=== PATIENT | female | born 1985 | race African-American/Black ===

== ENCOUNTER 2025-01-01 05:38 | Inpatient (IN) | payer MEDICAID, OTHER ==
[~2025-01-01] VITALS: Ht 167.6 cm; Wt 87.5 kg
[2025-01-01 05:40] VITALS: O2SAT 99
[2025-01-01 06:07] LABS: HEMATOCRIT. 30.6 % (36.0-48.0); HEMOGLOBIN. 8.2 g/dL (12.0-16.0); MEAN PLATELET VOLUME 8.6 fl (7.4-10.4); PLATELET 572 x1000/uL (130-400); RED BLOOD CELL COUNT 4.94 mill/uL (4.2-5.4); RED CELL DISTRIBUTION WIDTH 23.5 % (11.6-14.6)
[2025-01-01] MEDS: ONDANSETRON HCL 4MG/2ML INJ IV ONE ×2 (06:20→09:09)
[2025-01-01] MEDS: SODIUM CHLORIDE 0.9% 1,000 ML IV ONE ×3 (06:20→10:54)
[2025-01-01 06:21] LABS: HCG SCREEN NEGATIVE
[2025-01-01] MEDS: ACETAMINOPHEN 325MG TABLET PO ONE (06:21)
[2025-01-01] MEDS: ONDANSETRON 4MG ODT PO ONE (06:21)
[2025-01-01 06:22] LABS: CREATININE 1.2 mg/dL (0.6-1.0)
[2025-01-01 06:23] LABS: UREA NITROGEN BLOOD 15 mg/dL (9-23)
[2025-01-01 06:49] LABS: BAND% 2.0 % (1.0-6.0); LYMPHOCYTES % MANUAL 11.0 % (20.0-60.0); METAMYELOCYTES % 1.0 % (0-0); MONOCYTES % MANUAL 12.0 % (2.0-8.0); NEUTROPHILS % MANUAL 74.0 % (45.0-75.0); PLATELET ESTIMATE INCREASED
[2025-01-01] MEDS: KETOROLAC 15MG/ML VIAL IV ONE (07:09)
[2025-01-01 07:57] LABS: *AMPHETAMINES SCREEN URINE NEGATIVE (NEGATIVE); *BARBITURATES SCREEN URINE NEGATIVE (NEGATIVE); *BENZODIAZEPINES SCREEN URINE NEGATIVE (NEGATIVE); *COCAINE SCREEN URINE NEGATIVE (NEGATIVE); CANNABINOID URINE SCREEN PRESUMPTIVE POSITIVE (NEGATIVE); ECSTASY MDMA SCREEN URINE NEGATIVE (NEGATIVE); METHADONE URINE SCREEN NEGATIVE (NEGATIVE); OPIATES URINE SCREEN NEGATIVE (NEGATIVE); PHENCYCLIDINE URINE SCREEN NEGATIVE (NEGATIVE)
[2025-01-01 08:25] LABS: BG BASE EXCESS -22.1 mmol/L (-2.0-3.0); BG CARBOXYHEMOGLOBIN 0.2 % (0.5-1.5); BG DEOXYHEMOGLOBIN 3.0 % (0.0-5.0); BG FRACTION INSPIRED OXYGEN 21; BG HCO3 ACT 6.0 mmol/L (21.0-28.0); BG METHEMOGLOBIN 0.2 % (0.5-1.5); BG OXYGEN SATURATION 97.0 % (94.0-98.0); BG OXYHEMOGLOBIN 96.6 % (94.0-98.0); BG PCO2 20.5 mmHg (32.0-45.0); BG PH 7.083 (7.350-7.450); BG PO2 115.5 mmHg (83.0-108.0); BG SAMPLE SITE RIGHT RADIAL; BG TOTAL HEMOGLOBIN 8.5 g/dL (12.0-16.0); BG VENT MODE ROOM AIR
[2025-01-01] MEDS: MORPHINE SULFATE 4 MG/ML INJ (FOR IV/IM USE) IV ONE (09:08)
[2025-01-01] MEDS: PIPERACILLIN/TAZO 3.375G/50ML 50 ML IV ONE (09:08)
[2025-01-01 09:09] LABS: TROPONIN I HIGH SENSITIVITY < 4 ng/L (3.0-34)
[2025-01-01 09:34] LABS: CREATININE 1.0 mg/dL (0.6-1.0); UREA NITROGEN BLOOD 18 mg/dL (9-23)
[2025-01-01 09:41] LABS: CLARITY URINE CLOUDY (CLEAR); COLOR URINE YELLOW (YELLOW); PH URINE 5.0 (4.5-8.0); SPECIFIC GRAVITY URINE 1.014 (1.005-1.030)
[2025-01-01 09:42] LABS: GLUCOSE URINE NEGATIVE (NEGATIVE); KETONES URINE TRACE (NEGATIVE); LEUKOCYTE ESTERASE URINE NEGATIVE (NEGATIVE); NITRITE URINE NEGATIVE (NEGATIVE); OCCULT BLOOD URINE 2+ (NEGATIVE); PROTEIN URINE 3+ (NEGATIVE); UROBILINOGEN URINE 0.2 E.U./dL (0.2-1.0)
[2025-01-01] MEDS ORDERED: SODIUM ZIRCONIUM CYCLOSILICATE 10GM/PACKET PO NR (10:00)
[2025-01-01 10:04] LABS: COARSE GRANULAR CASTS URINE 0-5 /lpf; FINE GRANULAR CASTS URINE 0-5 /lpf; HYALINE CASTS URINE 0-5 /lpf
[2025-01-01 10:05] LABS: RBC URINE 0-2 /hpf (0-2); WBC URINE 0-2 /hpf (0-2)
[2025-01-01 10:06] LABS: SQUAMOUS EPITHELIAL CELL URINE 1+ /lpf (RARE/1+)
[2025-01-01 10:09] LABS: BACTERIA URINE 3+
[2025-01-01] MEDS: SODIUM ZIRCONIUM CYCLOSILICATE 10GM/PACKET PO NR ×2 (10:30→10:54)
[2025-01-01] MEDS: VANCOMYCIN 1G PREMIX 200 ML IV ONE (10:53)
[2025-01-01 11:12] LABS: BASOPHILS % 0.4 % (0.0-2.0); EOSINOPHILS % 0.0 % (0.0-5.0); HEMATOCRIT. 23.8 % (36.0-48.0); LYMPHOCYTES % 11.4 % (20.0-50.0); MEAN PLATELET VOLUME 8.5 fl (7.4-10.4); MONOCYTES % 11.8 % (2.0-8.0); NEUTROPHILS % 76.4 % (40.0-76.0); PLATELET 382 x1000/uL (130-400); RED BLOOD CELL COUNT 4.01 mill/uL (4.2-5.4); RED CELL DISTRIBUTION WIDTH 22.6 % (11.6-14.6)
[2025-01-01 11:27] LABS: HEMOGLOBIN. 6.6 g/dL (12.0-16.0)
[2025-01-01 11:36] LABS: ASPARTATE AMINOTRANSFERASE 36 IU/L (<34); BILIRUBIN DIRECT 0.2 mg/dL (<=3.0); BILIRUBIN TOTAL 0.6 mg/dL (0.1-1.0); PROTEIN TOTAL 7.6 g/dL (6.0-8.3)
[2025-01-01] MEDS: INSULIN REGULAR (HUMULIN R) 1000UNITS/10ML VIAL IV ONE (12:24)
[2025-01-01] MEDS: DEXTROSE 50% WATER 50ML SYRINGE IV ONE (12:24)
[2025-01-01] MEDS: CALCIUM GLUCONATE 100MG/ML 10ML VIAL IV ONE (12:25)
[2025-01-01] MEDS: SODIUM BICARBONATE 8.4% 50MEQ/50ML VIAL IV ONE (12:25)
[2025-01-01] MEDS: CALCIUM GLUCONATE 1GM PREMIX 50 ML IV NR (12:42)
[2025-01-01] MEDS: SODIUM CHLORIDE 0.9% 1,000 ML IV SCH (12:42)
[2025-01-01] MEDS: PANTOPRAZOLE SODIUM 40 MG/VIAL IV SCH (12:42)
[2025-01-01] MEDS: ENOXAPARIN 40MG/0.4ML SYR SUBCUT SCH (12:42)
[2025-01-01] MEDS: CEFTRIAXONE 1GM/50ML 50 ML IV SCH (13:07)
[2025-01-01 13:34] LABS: FOLIC ACID (FOLATE) SERUM > 20.00 ng/mL (>5.38); VITAMIN B12 SERUM 441 pg/mL (211-911)
[2025-01-01 14:00] VITALS: BP 112/72; PULSE 98; RESP 22; TEMP 37.0296
[2025-01-01 16:00] VITALS: BP 113/71; PULSE 96; RESP 25; TEMP 37; O2SAT 100
[2025-01-01] MEDS ORDERED: ACETAMINOPHEN 325MG TABLET PO PRN (17:30)
[2025-01-01] MEDS ORDERED: IPRATROPIUM/ALBUTEROL 0.5-3(2.5)MG/3ML NEB HHN PRN (17:30)
[2025-01-01] MEDS ORDERED: ONDANSETRON HCL 4MG/2ML INJ IV PRN (17:30)
[2025-01-01] MEDS ORDERED: CLONIDINE 0.1MG TABLET PO PRN (17:30)
[2025-01-01] MEDS ORDERED: ACETAMINOPHEN 650MG/20.3ML UDC GT PRN ×2 (17:30)
[2025-01-01 18:00] VITALS: BP 122/76; PULSE 100; RESP 23; O2SAT 100
[2025-01-01 19:26] LABS: PLATELET 366 x1000/uL (130-400); RED BLOOD CELL COUNT 4.03 mill/uL (4.2-5.4); RED CELL DISTRIBUTION WIDTH 23.0 % (11.6-14.6)
[2025-01-01 19:36] LABS: INR 1.1
[2025-01-01 19:37] LABS: CREATININE 0.9 mg/dL (0.6-1.0); UREA NITROGEN BLOOD 12 mg/dL (9-23)
[2025-01-01 19:39] LABS: PHOSPHORUS 2.9 mg/dL (2.5-4.9)
[2025-01-01 20:00] VITALS: BP 120/83; PULSE 98; RESP 24; TEMP 37.1; O2SAT 100
[2025-01-01 20:29] LABS: INFLUENZA TYPE A Presumptive Negative (Pres. Neg.)
[2025-01-01 20:30] LABS: INFLUENZA TYPE B Presumptive Negative (Pres. Neg.); RESPIRATORY SYNCYTIAL VIRUS Not Detected (Not Detectd)
[2025-01-01] MEDS: VANCOMYCIN 1GM/200ML PMX (BAXTER) IV SCH (21:00)
[2025-01-01 22:00] VITALS: PULSE 105; RESP 18; O2SAT 100
[2025-01-01] MEDS: PIPERACILLIN/TAZO 3.375G/50ML 50 ML IV SCH (22:10)
[2025-01-02] VITALS (12 sets, daily range): BP systolic 100–124; BP diastolic 61–87; PULSE 82–112; RESP 16–26; TEMP 37.1–37.7; O2SAT 97–100
[2025-01-02] MEDS: LACTATED RINGERS 1,000 ML IV SCH (13:45)
[2025-01-02] MEDS: CITRIC ACID/SODIUM CITRATE SOLN 30ML UDC PO SCH (17:53)
[2025-01-03] VITALS (11 sets, daily range): BP systolic 96–134; BP diastolic 63–93; PULSE 67–95; RESP 14–28; TEMP 36.6–37.6; O2SAT 99–100
[2025-01-03 08:07] LABS: MEAN PLATELET VOLUME 8.9 fl (7.4-10.4); PLATELET 281 x1000/uL (130-400); RED BLOOD CELL COUNT 3.69 mill/uL (4.2-5.4); RED CELL DISTRIBUTION WIDTH 22.3 % (11.6-14.6)
[2025-01-03 08:08] LABS: CREATININE 0.8 mg/dL (0.6-1.0); UREA NITROGEN BLOOD 6 mg/dL (9-23)
[2025-01-03 08:28] LABS: HEMATOCRIT. 20.5 % (36.0-48.0); HEMOGLOBIN. 6.2 g/dL (12.0-16.0)
[2025-01-03] MEDS: POTASSIUM CHLORIDE 20MEQ TABLET SR PO SCH (15:01)
[2025-01-03] MEDS: IRON SUCROSE COMPLEX 100 MG/5 ML ML IV SCH (16:22)
[2025-01-03 17:18] LABS: EOSINOPHILS % MANUAL 2.0 % (0.0-5.0); LYMPHOCYTES % MANUAL 28.0 % (20.0-60.0); MONOCYTES % MANUAL 9.0 % (2.0-8.0); NEUTROPHILS % MANUAL 61.0 % (45.0-75.0); PLATELET ESTIMATE NORMAL
[2025-01-04] VITALS: BP 106/59; PULSE 86; RESP 23; TEMP 37.3; O2SAT 99
[2025-01-04 04:00] VITALS: BP 111/76; PULSE 69; RESP 21; TEMP 37.2; O2SAT 100
[2025-01-04 06:57] LABS: MEAN PLATELET VOLUME 8.8 fl (7.4-10.4); PLATELET 251 x1000/uL (130-400); RED BLOOD CELL COUNT 3.69 mill/uL (4.2-5.4); RED CELL DISTRIBUTION WIDTH 22.3 % (11.6-14.6)
[2025-01-04 07:16] LABS: CREATININE 0.7 mg/dL (0.6-1.0); T4 FREE 1.12 ng/dL (0.89-1.76)
[2025-01-04 07:17] LABS: UREA NITROGEN BLOOD < 5 mg/dL (9-23)
[2025-01-04 07:34] LABS: HEMOGLOBIN. 6.3 g/dL (12.0-16.0)
[2025-01-04 07:35] LABS: HEMATOCRIT. 20.8 % (36.0-48.0)
[2025-01-04 08:00] VITALS: BP 106/71; PULSE 83; RESP 24; TEMP 37.2; O2SAT 100
[2025-01-04] MEDS: CYANOCOBALAMIN 1000MCG/ML VIAL IM SCH (09:29)
[2025-01-04] MEDS: POTASSIUM CHLORIDE 20MEQ TABLET SR PO NR (11:14)
[2025-01-04] MEDS: THROAT LOZENGES-BENZOCAINE/MENTH/CETYLPYRD CL LOZENGES MM PRN (11:20)
[2025-01-04 12:00] VITALS: BP 126/73; PULSE 74; RESP 15; TEMP 37.1; O2SAT 100
[2025-01-04 14:21] LABS: PHOSPHORUS 2.8 mg/dL (2.5-4.9)
[2025-01-04 15:37] VITALS: BP 124/71; PULSE 85; RESP 20; TEMP 37.2; O2SAT 100
[2025-01-04 20:00] VITALS: BP 135/71; PULSE 85; RESP 18; TEMP 36.6; O2SAT 100
[2025-01-04 20:00] LABS: EOSINOPHILS % MANUAL 3.0 % (0.0-5.0); LYMPHOCYTES % MANUAL 25.0 % (20.0-60.0); MONOCYTES % MANUAL 18.0 % (2.0-8.0); NEUTROPHILS % MANUAL 54.0 % (45.0-75.0)
[2025-01-04 20:01] LABS: PLATELET ESTIMATE NORMAL
[2025-01-05] VITALS: BP 126/73; PULSE 82; RESP 17; TEMP 36.6; O2SAT 100
[2025-01-05 04:00] VITALS: BP 137/76; PULSE 82; RESP 18; TEMP 36.6; O2SAT 100
[2025-01-05 05:43] LABS: INR 1.0
[2025-01-05 05:46] LABS: UREA NITROGEN BLOOD < 5 mg/dL (9-23)
[2025-01-05 05:47] LABS: CREATININE 0.6 mg/dL (0.6-1.0)
[2025-01-05 05:49] LABS: ASPARTATE AMINOTRANSFERASE 26 IU/L (<34); BILIRUBIN DIRECT 0.1 mg/dL (<=3.0); BILIRUBIN TOTAL 0.4 mg/dL (0.1-1.0); PHOSPHORUS 3.0 mg/dL (2.5-4.9); PROTEIN TOTAL 6.4 g/dL (6.0-8.3)
[2025-01-05 05:53] LABS: BASOPHILS % 1.8 % (0.0-2.0); EOSINOPHILS % 4.0 % (0.0-5.0); HEMATOCRIT. 21.1 % (36.0-48.0); LYMPHOCYTES % 35.9 % (20.0-50.0); MEAN PLATELET VOLUME 9.0 fl (7.4-10.4); MONOCYTES % 13.6 % (2.0-8.0); NEUTROPHILS % 44.7 % (40.0-76.0); PLATELET 240 x1000/uL (130-400); RED BLOOD CELL COUNT 3.69 mill/uL (4.2-5.4); RED CELL DISTRIBUTION WIDTH 22.6 % (11.6-14.6)
[2025-01-05 06:53] LABS: HEMOGLOBIN. 6.3 g/dL (12.0-16.0)
[2025-01-05 08:00] VITALS: BP 144/73; PULSE 84; RESP 26; TEMP 36.4; O2SAT 100
[2025-01-05] MEDS: MAGNESIUM 2 G PREMIX 50 ML IV NR (08:53)
[2025-01-05] MEDS: POTASSIUM CHLORIDE 20MEQ TABLET SR PO NR (08:53)
[2025-01-05 12:00] VITALS: BP 143/74; PULSE 82; RESP 19; O2SAT 100
[2025-01-05 16:00] VITALS: BP 122/76; PULSE 97; RESP 22; TEMP 36.6; O2SAT 100
[2025-01-05] MEDS: ACETAMINOPHEN 325MG TABLET PO PRN (20:19)
[2025-01-06] VITALS (8 sets, daily range): BP systolic 126–154; BP diastolic 64–98; PULSE 75–95; RESP 16–31; TEMP 36.4–37.3; O2SAT 99–100
[2025-01-06 06:50] LABS: BASOPHILS % 1.4 % (0.0-2.0); EOSINOPHILS % 4.2 % (0.0-5.0); LYMPHOCYTES % 29.5 % (20.0-50.0); MEAN PLATELET VOLUME 9.0 fl (7.4-10.4); MONOCYTES % 14.7 % (2.0-8.0); NEUTROPHILS % 50.2 % (40.0-76.0); PLATELET 227 x1000/uL (130-400); RED BLOOD CELL COUNT 3.73 mill/uL (4.2-5.4); RED CELL DISTRIBUTION WIDTH 22.7 % (11.6-14.6)
[2025-01-06 07:03] LABS: CREATININE 0.7 mg/dL (0.6-1.0)
[2025-01-06 07:04] LABS: UREA NITROGEN BLOOD 5 mg/dL (9-23)
[2025-01-06 07:05] LABS: PHOSPHORUS 3.9 mg/dL (2.5-4.9)
[2025-01-06 07:58] LABS: HEMOGLOBIN. 6.7 g/dL (12.0-16.0)
[2025-01-06 07:59] LABS: HEMATOCRIT. 22.3 % (36.0-48.0)
[2025-01-06 08:00] LABS: ADD RBC MORPHOLOGY NO
[2025-01-06] MEDS: IRON SUCROSE COMPLEX 100 MG/5 ML ML IV SCH (08:59)
[2025-01-07] VITALS: BP 144/69; PULSE 85; RESP 22; TEMP 37; O2SAT 100
[2025-01-07 04:00] VITALS: BP 134/68; PULSE 81; RESP 24; TEMP 37; O2SAT 100
[2025-01-07 08:00] VITALS: BP 109/70; PULSE 80; RESP 17; TEMP 36.8; O2SAT 98
[2025-01-07] MEDS: BARIUM SULFATE 176 GM SUSP.RECON ONE (10:33)
[2025-01-07 12:00] VITALS: BP 122/74; PULSE 76; RESP 24; TEMP 36.7; O2SAT 99
[2025-01-07 16:00] VITALS: BP 111/72; PULSE 82; RESP 30; TEMP 36.7; O2SAT 100
[2025-01-07 19:25] LABS: HEMATOCRIT. 24.1 % (36.0-48.0); HEMOGLOBIN. 7.4 g/dL (12.0-16.0); MEAN PLATELET VOLUME 8.8 fl (7.4-10.4); PLATELET 277 x1000/uL (130-400); RED BLOOD CELL COUNT 3.90 mill/uL (4.2-5.4); RED CELL DISTRIBUTION WIDTH 22.3 % (11.6-14.6)
[2025-01-07 19:44] LABS: CREATININE 0.6 mg/dL (0.6-1.0); UREA NITROGEN BLOOD < 5 mg/dL (9-23)
[2025-01-07 19:59] LABS: EOSINOPHILS % MANUAL 6.0 % (0.0-5.0); LYMPHOCYTES % MANUAL 16.0 % (20.0-60.0); MONOCYTES % MANUAL 18.0 % (2.0-8.0); NEUTROPHILS % MANUAL 60.0 % (45.0-75.0); PLATELET ESTIMATE NORMAL
[2025-01-07 20:00] VITALS: BP 115/81; PULSE 77; RESP 26; TEMP 36.7; O2SAT 100
[2025-01-08] VITALS: BP 105/71; PULSE 80; RESP 24; TEMP 36.7; O2SAT 100
[2025-01-08 04:00] VITALS: BP 105/65; PULSE 83; RESP 21; TEMP 36.7; O2SAT 99
[2025-01-08 08:00] VITALS: BP 120/64; PULSE 71; RESP 18; TEMP 36.9; O2SAT 99
[2025-01-08 08:23] LABS: BASOPHILS % 0.9 % (0.0-2.0); EOSINOPHILS % 3.7 % (0.0-5.0); HEMATOCRIT. 25.6 % (36.0-48.0); HEMOGLOBIN. 7.9 g/dL (12.0-16.0); LYMPHOCYTES % 19.6 % (20.0-50.0); MEAN PLATELET VOLUME 8.8 fl (7.4-10.4); MONOCYTES % 11.1 % (2.0-8.0); NEUTROPHILS % 64.7 % (40.0-76.0); PLATELET 276 x1000/uL (130-400); RED BLOOD CELL COUNT 4.09 mill/uL (4.2-5.4); RED CELL DISTRIBUTION WIDTH 22.4 % (11.6-14.6)
[2025-01-08 08:26] LABS: ADD RBC MORPHOLOGY NO
[2025-01-08] MEDS ORDERED: FERR-71 MT (10:09)
[2025-01-08] MEDS ORDERED: ASCO-339 MT (10:09)
[2025-01-08] MEDS ORDERED: PROT20 MT (10:09)
[2025-01-08] MEDS ORDERED: DOCU-138 MT (10:09)
[2025-01-08 14:00] VITALS: BP 113/67; PULSE 94; RESP 19; O2SAT 100
[2025-01-08 15:18] VITALS: BP 128/54; PULSE 88; RESP 18; TEMP 98.3
== END 2025-01-08 15:45 | disposition home or self-care (01) | DRG 720 ==
LOC: ER 05:38 → EDBD 08:30 → 5EST 08:30 → EDBEDREQSVC 09:05 → EDBEDREQTM 09:05 → EDBEDREQ 09:05 → EDBEDREQSVC 11:07
PROVIDERS: ADMIT Internal Medicine; ATTEND Internal Medicine
DX: A41.9 Sepsis, unspecified organism (principal); E87.4 Mixed disorder of acid-base balance; K31.1 Adult hypertrophic pyloric stenosis; N25.89 Other disorders resulting from impaired renal tubular function; E87.5 Hyperkalemia; D50.9 Iron deficiency anemia, unspecified; Z20.822 Contact with and (suspected) exposure to COVID-19; E87.6 Hypokalemia; N92.0 Excessive and frequent menstruation with regular cycle; E86.0 Dehydration; N17.9 Acute kidney failure, unspecified; R73.9 Hyperglycemia, unspecified; E05.90 Thyrotoxicosis, unspecified without thyrotoxic crisis or storm; D25.1 Intramural leiomyoma of uterus; N18.9 Chronic kidney disease, unspecified; N39.0 Urinary tract infection, site not specified; N83.201 Unspecified ovarian cyst, right side; I12.9 Hypertensive chronic kidney disease with stage 1 through stage 4 chronic kidney disease, or unspecified chronic kidney disease; N92.1 Excessive and frequent menstruation with irregular cycle; M54.9 Dorsalgia, unspecified
CPT/HCPCS: 36415; 36600; 71045; 74176; 74220; 76770; 76830; 76856; 80048; 80051; 80076; 80202; 80305; 80320; 81003; 82010; 82270; 82375; 82550; 82607; 82746; 82805; 83036; 83540; 83550; 83605; 83735; 83930; 84100; 84145; 84439; 84443; 84481; 84484; 84703; 85025; 85027; 85044; 86592; 86850; 86900; 86920; 87420; 87426; 87804; 93005; 99291; A4606; J0612; J0696; J1650; J1885; J2270; J2405; J2470; J2543; J3373; J3420; J3475; J7030; J7120; Q0162; G0480